=== PATIENT | male | born 1960 | race Caucasian/White ===

== ENCOUNTER 2022-09-23 08:07 | Day surgery (SDC) | payer OTHER ==
[~2022-09-23 08:07] MED LIST: ALPRAZolam 0.25 MG TAB PO PRN; ALPRAZolam 0.5 MG TAB PO PRN; ASPIRIN 325 MG TAB PO ONE; NITROGLYCERIN SL TABS 0.4 MG TAB SUBLINGUAL PRN; SODIUM CHLORIDE 0.9% 1,000 ML in EMPTY BAG 1 BAG IV SCH
[2022-09-23 08:27] VITALS: RESP 18; TEMP 99.2
[2022-09-23] MEDS ORDERED: HEPARIN SODIUM 1,000 UN/ML (10ML VL) ONE (08:45)
[2022-09-23] MEDS ORDERED: fentaNYL (PF) 50 MCG/ML 2 ML AMP ONE (08:45)
[2022-09-23] MEDS ORDERED: fentaNYL (PF) 50 MCG/ML 2 ML AMP IVP ONE (09:08)
[2022-09-23] MEDS ORDERED: LIDOCAINE 1% INJ 10MG/ML (5 ML VIAL-PF) SQ ONE (09:12)
[2022-09-23] MEDS ORDERED: MIDAZOLAM 2 MG/2 ML VIAL IVP ONE (09:12)
[2022-09-23] MEDS ORDERED: VERAPAMIL SYRINGE (5 MG/10 ML) INTRAARTER ONE (09:14)
[2022-09-23] MEDS ORDERED: HEPARIN SODIUM 1,000 UN/ML (10ML VL) IVP ONE (09:17)
[2022-09-23] MEDS ORDERED: IOPAMIDOL-370 200ML BTL INJ ONE (09:25)
[2022-09-23] MEDS ORDERED: RX INFO: IV CONTRAST WAS GIVEN 1 EACH MISC MISCELLANE PRN (09:33)
--- NOTE | 2022-09-23 09:39 | P.CARDCATH ---
Date of Procedure: 09/23/22 Description of Procedure: Cardiac Catheterization: The patient is a 62-year-old male with a known history of hypertension, hyperlipidemia and chronic tobacco use who has been complaining of progressive dyspnea, underwent an MPI that showed evidence of stress-induced ischemia. Recommendations were made regarding cardiac catheterization, the risks and the complications were discussed with the patient who is in full understanding and agreement. Procedure Description: Patient was brought to crime lab technician in fasting semi-sedated state after receiving Fentanyl and Benadryl achieiving moderate conscious sedated state. Using Xylocaine Anesthesia and Seldinger technique, a 6-Macanese sheath was introduced in the right radial artery . Subsequently, selective coronary angiography was performed using a 5-Macanese 3.5 bend right Romina catheter and 6-Macanese 3.5 left Romina catheter. Multiple views of the coronary artery including hemiaxial views were obtained. The 5- Macanese pigtail catheter was used to cross the aortic valve and LVEDP was calculated. Following that, catheter and sheath were removed. Hemostasis was obtained with deployment of TR band . There was no immediate complication. Patient was returned to room in stable condition. Of note, the patient received a total of 4500 units of intravenous heparin as well as intra-arterial verapamil. Findings: Fluoroscopy: Calcification of the LAD was noted. Left main: This is a large-size vessel, bifurcating into LAD and left circumflex, left main has no high-grade stenosis LAD: This is a large-size vessel, calcified proximally, giving rise to small diagonal branch, the LAD and its branches have no evidence of high-grade stenosis Left circumflex: This is a nondominant vessel, large in caliber, giving rise to a large obtuse marginal branch. The proximal left circumflex has a 30% plaque, the rest of the vessel has no high-grade stenosis. RCA: This is a dominant vessel, bifurcating distally to PDA and PLV, the proximal RCA has a 10% plaque. Left Ventriculogram: Not performed Hemodynamics: There was no gradient across the aortic valve, LVEDP was 15-18 mmHg Conclusion: 1. Calcified proximal LAD 2. Mild disease in the left circumflex and RCA 3. Right dominance 4. Normal LVEDP Recommendations: The patient will continue present therapy with aggressive coronary risks modifications, the importance of smoking cessation was discussed with him. The findings and the recommendations were discussed with the patient and the family and they were in full understanding and agreement. Duration of sedation is 15 minutes.
[2022-09-23] MEDS ORDERED: SODIUM CHLORIDE 0.9% 1,000 ML IV SCH (09:45)
[2022-09-23 13:53] VITALS: BP 128/72; PULSE 86
[2022-09-23] MEDS ORDERED: ATORVASTATIN 40 MG TAB PO SCH (21:00)
[2022-09-23] MEDS ORDERED: MONTELUKAST 10 MG TAB PO SCH (21:00)
[2022-09-24] MEDS ORDERED: PANTOPRAZOLE 40 MG TABLET PO SCH (07:30)
[2022-09-24] MEDS ORDERED: lisinopriL 10 MG TAB PO SCH (09:00)
[2022-09-24] MEDS ORDERED: ASPIRIN 81 MG PO SCH (09:00)
== END 2022-09-23 13:45 | disposition home or self-care (01) ==
LOC: CATHCVL 08:07
PROVIDERS: ATTEND Internal Medicine Interventional Cardiology
DX: I25.10 Atherosclerotic heart disease of native coronary artery without angina pectoris (principal); I10 Essential (primary) hypertension; E78.5 Hyperlipidemia, unspecified; Z82.49 Family history of ischemic heart disease and other diseases of the circulatory system; Z87.891 Personal history of nicotine dependence; Z79.899 Other long term (current) drug therapy
CPT/HCPCS: 93458; C1769 ×2; C1894; J2250; J2001; J3010; J1644; Q9967

== ENCOUNTER 2024-07-30 08:02 | Day surgery (SDC) | payer MEDICARE, OTHER ==
[2024-07-29 08:44] VITALS: BMI 24.3
[2024-07-30] MEDS: IV FLUID CONTINUATION 1,000 ML IV ONE (08:24)
[2024-07-30] MEDS: LACTATED RINGERS 1,000 ML IV SCH (08:27)
[2024-07-30] MEDS: LIDOCAINE 1% (10MG/ML) FOR IV START INTRADERMA STA (08:28)
[2024-07-30 08:36] VITALS: TEMP 97.7
[2024-07-30] MEDS ORDERED: LIDOCAINE 2% (PF) 20 MG/ML 5 ML VIAL ONE (08:55)
[2024-07-30] MEDS ORDERED: PROPOFOL 10 MG/ML 20 ML VIAL IV ONE (08:55)
--- NOTE | 2024-07-30 09:15 | P.PCN ---
Date of Procedure: 07/30/24 Procedure(s) Performed: Brief history: Patient is a pleasant 64-year-old white male scheduled for an elective upper endoscopy as well as colonoscopy as a part of evaluation of iron deficiency anemia. He denies any GI symptoms. Procedure performed: Esophagogastroduodenoscopy biopsy Colonoscopy Preoperative diagnosis: Iron deficiency anemia Anesthesia: [facility] [place] Procedure: After informed consent was obtained from the patient was brought into the endoscopy unit and IV sedation was administered by anesthesia under continuous monitoring. Initially upper endoscopy was done. The Olympus GF 160 video endoscope was inserted inserted into the mouth and esophagus intubated without any difficulty and was gradually advanced into the stomach and duodenum and carefully examined. The bulb and second part of the duodenum appeared normal. The scope was then withdrawn into the stomach adequately insufflated with air and upon careful examination the antrum and mild gastritis and biopsies were done from this area. Mucosa of the body, cardia and fundus appeared normal. The scope was then withdrawn into the esophagus. The GE junction was located at 40 cm to the incisors. It appeared irregular with no erythema erosions or ulcerations. Short segment of Enciso's esophagus extending 3 mm proximal to th e GE junction which was biopsied. Rest of the esophagus appeared normal. Patient tolerated the procedure well. At this time the patient continued to remain sedation. Initial digital rectal examination was normal. Olympus CF 160 video colonoscope was then inserted into the rectum and gradually advanced to the cecum without any difficulty. Careful examination was performed as the scope was gradually being withdrawn. The prep was excellent. The cecum, ascending colon, transverse colon, descending colon, sigmoid colon and rectum appeared normal. Scattered sigmoid diverticulosis. Retroflexion was performed in the rectum and small internal hemorrhoid were noted. Patient tolerated the procedure well. Impression: 1. Upper endoscopy revealed mild antral gastritis and short segment Enciso's esophagus 2. Colonoscopy revealed scattered sigmoid diverticulosis and small internal hemorrhoids Recommendations: Findings of this examination were discussed with the patient as well as his family. He was advised to follow-up with the biopsy results. Continue with iron supplements. Monitor CBC periodically. Recommended repeat colonoscopy in 10 years..
[2024-07-30 09:45] LABS: Glucose,Whole Blood 133 mg/dL (70-110)
[2024-07-30 10:22] VITALS: BP 127/66; PULSE 77; RESP 16
== END 2024-07-30 10:31 | disposition home or self-care (01) ==
LOC: ORWHC2ENDO 08:02
PROVIDERS: ATTEND Internal Medicine Gastroenterology
DX: D50.9 Iron deficiency anemia, unspecified (principal); K29.50 Unspecified chronic gastritis without bleeding; B96.81 Helicobacter pylori [H. pylori] as the cause of diseases classified elsewhere; K31.A11 Gastric intestinal metaplasia without dysplasia, involving the antrum; K22.70 Barrett's esophagus without dysplasia; K57.30 Diverticulosis of large intestine without perforation or abscess without bleeding; K64.8 Other hemorrhoids; K20.90 Esophagitis, unspecified without bleeding; I10 Essential (primary) hypertension; E78.5 Hyperlipidemia, unspecified; J44.9 Chronic obstructive pulmonary disease, unspecified; F17.210 Nicotine dependence, cigarettes, uncomplicated; F12.90 Cannabis use, unspecified, uncomplicated; Z79.899 Other long term (current) drug therapy; Z88.8 Allergy status to other drugs, medicaments and biological substances
CPT/HCPCS: 88305; 88342; 45378; 43239; J2704; J2003